=== PATIENT | female | born 1985 | race Caucasian/White ===

== ENCOUNTER 2017-10-16 22:07 | Emergency (ER) | payer MEDICAID ==
--- NOTE | 2017-10-16 23:15 | EDM.PDOC ---
ED HPI GENERAL MEDICAL PROBLEM - General Chief Complaint: Lower Extremity Injury/Pain Stated Complaint: POSSIBLE BROKEN RT ANKLE Time Seen by Provider: 10/16/17 23:09 Source of Information: Reports: Patient, Family, RN Notes Reviewed History Limitations: Reports: No Limitations - History of Present Illness INITIAL COMMENTS - FREE TEXT/NARRATIVE: 32-year-old female presents to the emergency department today complaint of right ankle pain she injured herself earlier when she twisted on a tree root she is having difficulty ambulating and bearing weight Left Ankle Pain Score (Numeric/FACES): 2 - Related Data Allergies Allergy/AdvReac Type Severity Reaction Status Date / Time No Known Allergies Allergy Verified 10/16/17 22:29 Home Meds: Home Meds NK [No Known Home Meds] 10/16/17 [History] Past Medical History HEENT History: Reports: Impaired 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: Dermatologic History: Reports: Psoriasis - Infectious Disease History Infectious Disease History: Reports: Chicken Pox Social & Family History - Tobacco Use Smoking Status *Q: Never Smoker - Caffeine Use Caffeine Use: Reports: Soda - Recreational Drug Use Recreational Drug Use: No Review of Systems - Review of Systems Review Of Systems: See Below Musculoskeletal: Reports: Joint Pain (Clinical pain) Skin: Reports: Bruising ED EXAM, GENERAL - Physical Exam Exam: See Below Free Text/Narrative:: Examination of the right ankle I do appreciate some edema over the lateral malleolus she is tender to palpation of the lateral malleolus pedal pulse is +2 and sensation is intact she is having difficulty bearing weight Exam Limited By: No Limitations General Appearance: Alert, WD/WN, No Apparent Distress Course - Vital Signs Last Recorded V/S: Last Vital Signs Temp 99.1 F 10/16/17 22:40 Pulse 99 10/16/17 22:40 Resp 16 10/16/17 22:40 BP 153/98 H 10/16/17 22:40 Pulse Ox 99 10/16/17 22:40 - Orders/Labs/Meds Orders: Active Orders 24 hr Category Date Time Status Ankle Min 3V Rt [CR] Stat Exams 10/16/17 22:48 Taken Departure - Departure Time of Disposition: 23:15 Disposition: Home, Self-Care 01 Condition: Good Clinical Impression: Right ankle sprain Qualifiers: Encounter type: initial encounter Involved ligament of ankle: unspecified ligament Qualified Code(s): S93.401A - Sprain of unspecified ligament of right ankle, initial encounter - Discharge Information Referrals: PCP,None [Primary Care Provider] - Additional Instructions: Rest ice and elevation try and use crutches as much as possible, as well as the stirrup for support, use ibuprofen for baseline pain control use hydrocodone for breakthrough pain, follow-up with your primary care in 5-7 days for reevaluation, call or return to the emergency department worsening of symptoms - My Orders Last 24 Hours: My Active Orders 10/16/17 22:48 Ankle Min 3V Rt [CR] Stat - Assessment/Plan Last 24 Hours: My Active Orders 10/16/17 22:48 Ankle Min 3V Rt [CR] Stat Plan: Assessment Acuity = acute Site and laterality = right ankle sprain Etiology = secondary to twisting injury Manifestations = none Location of injury = Home Lab values = ankle x-ray I did review films myself I cannot appreciate any acute process, the official read from radiology is pending Plan Placed in a stirrup splint and crutches follow-up primary care 5-7 days for reevaluation use ibuprofen for baseline pain control hydrocodone 5/325 one tab by mouth 3 times a day when necessary total #10 provided This note was dictated using [employer] voice recognition software please call with any questions on syntax or grammar.
--- NOTE | 2017-10-17 08:59 | CR ---
Ankle Min 3V Rt CLINICAL HISTORY: Pain, twisted FINDINGS: The soft tissues are moderately swollen particularly over the lateral malleolus.. No acute fracture or dislocation is noted. Ankle mortise is intact. Articular surfaces are smooth
== END 2017-10-16 23:35 | disposition home or self-care (01) ==
LOC: JP.ED 22:07
DX: S93.401A Sprain of unspecified ligament of right ankle, initial encounter (principal); X50.9XXA Other and unspecified overexertion or strenuous movements or postures, initial encounter
CPT/HCPCS: 73610-26-RT; 73610-RT; 99284